=== PATIENT | female | born 1990 | race Caucasian/White ===

== ENCOUNTER 2018-10-22 14:14 | Emergency (ER) | payer BC ==
[2018-10-22 14:25] VITALS: BP 139/80; PULSE 57; RESP 18; TEMP 98.3
--- NOTE | 2018-10-22 14:52 | XR ---
EXAMINATION TYPE: XR wrist complete RT DATE OF EXAM: 10/22/2018 COMPARISON: NONE HISTORY: Pain TECHNIQUE: Four views submitted. FINDINGS: The osseous structures are intact. The joint spaces are preserved and there is no acute fracture or dislocation. IMPRESSION: 1. No definite acute fracture or dislocation if symptoms persist, follow-up study in 7 to 10 days wo uld be suggested
--- NOTE | 2018-10-22 14:53 | XR ---
EXAMINATION TYPE: XR hand complete RT DATE OF EXAM: 10/22/2018 COMPARISON: NONE HISTORY: Pain TECHNIQUE: Three views are submitted. FINDINGS: The osseous structures are intact. The joint spaces are preserved and there is no acute fracture or dislocation. IMPRESSION: 1. No definite acute fracture or dislocation if symptoms persist, follow-up study in 7 to 10 days wo uld be suggested
--- NOTE | 2018-10-22 15:04 | ED ---
General Adult HPI - General Chief complaint: Extremity Injury, Upper Stated complaint: right arm/hand pain Time Seen by Provider: 10/22/18 14:25 Source: patient, RN notes reviewed, old records reviewed Mode of arrival: ambulatory Limitations: no limitations - History of Present Illness Initial comments: 28-year-old female patient with no pertinent past medical history presents ED chief complaint approximately 2 months of atraumatic right hand and right wrist pain. Patient reports that this pain is exacerbated with hand movements, lifting and pulling. Patient denies any recent falls or trauma. Patient denies any personal history of inflammatory arthritis. Denies any other complaints. Denies any chance of being . Systemic: Pt denies fatigue, fever/chills, rash. Pt denies weakness, night sweats, weight loss. Neuro: Pt denies headache, visual disturbances, syncope or pre-syncope. HEENT: Pt denies ocular discharge or irritation, otalgia, rhinorrhea, pharyngitis or notable lymphadenopathy. Cardiopulmonary: Pt denies chest pain, SOB, heart palpitations, dyspnea on exertion. Abdominal/GI: Pt denies abdominal pain, n/v/d. : Pt denies dysuria, burning w/ urination, frequency/urgency. Denies new onset urinary or bowel incontinence. MSK: Pt denies loss of strength or function in extremities. Neuro: Pt denies new onset weakness, paresthesias. - Related Data Allergies Allergy/AdvReac Type Severity Reaction Status Date / Time No Known Allergies Allergy Verified 10/22/18 14:24 Review of Systems ROS Statement: Those systems with pertinent positive or pertinent negative responses have been documented in the HPI. ROS Other: All systems not noted in ROS Statement are negative. Past Medical History Past Medical History: No Reported History History of Any Multi-Drug Resistant Organisms: None Reported Past Surgical History: Cholecystectomy, Orthopedic Surgery Past Psychological History: No Psychological Hx Reported Smoking Status: Never smoker Past Alcohol Use History: None Reported Past Drug Use History: None Reported General Exam - General Exam Comments Initial Comments: Constitutional: NAD, AOX3, Pt has pleasant affect. HEENT: NC/AT, trachea midline, neck supple, no lymphadenopathy. Posterior pharynx non erythematous, without exudates. External ears appear normal, without discharge. Mucous membranes moist. Eyes PERRLA, EOM intact. There is no scleral icterus. No pallor noted. Cardiopulmonary: RRR, no murmurs, rubs or gallops, no JVD noted. Lungs CTAB in anterior and posterior cuevas. No peripheral edema. Abdominal exam: Abdomen soft and non-distended. Abdomen non-tender to palpation in all 4 quadrants. Bowel sounds active in LLQ. No hepatosplenomegaly. No ecchymosis Neuro: CN II-XII grossly intact. No nuchal rigidity. No raccon eyes, no benjamin sign, no hemotympanum. No cervical spinal tenderness. MSK: Right hand and wrist nontender to palpation, no ecchymoses, had refill less than 2 seconds, radial pulse +2. Full range of motion. No erythema. No posterior calf tenderness bilaterally, homans sign negative bilaterally. Posterior tibialis and radial pulse +2 bilaterally. Sensation intact in upper and lower extremities. Full active ROM in upper and lower extremities, 5/5 stregnth. Limitations: no limitations Course Vital Signs 10/22/18 14:22 Temperature 98.3 F Pulse Rate 57 L Respiratory 18 Rate Blood Pressure 139/80 O2 Sat by Pulse 100 Oximetry Medical Decision Making - Medical Decision Making 28-year-old female patient presents to ED chief complaint approximately 2 months of right hand and wrist pain without any trauma or injury. Patient also in stable, afebrile. Physical exam demonstrates pathology. Plain films of hand restaurants that he pathology. Patient was discharged with orthopedic follow- up. Patient will use Tylenol and Motrin as needed for pain. Recommended neutral splints to wear at night. Case discussed with Dr. Parsons. Disposition Clinical Impression: Arthralgia Disposition: HOME SELF-CARE Condition: Stable Instructions (If sedation given, give patient instructions): Arthralgia (ED) Additional Instructions: Patient to adhere to previously discussed treatment plan and will take medication(s) as directed. Patient to follow up with PCP in 1-2 days. Patient to return to ED if symptoms do not improve. Follow-up with primary care provider and orthopedic consult 1-2 days. Use Tylenol and Motrin as needed for pain. Consider purchasing neutral splints to wear at night. Return to ER if condition worsens. Is patient prescribed a controlled substance at d/c from ED?: No Referrals: None,Stated [Primary Care Provider] - 1-2 days Kota Powell DO [Medical Doctor] - 1-2 days [facility] - 1-2 days
== END 2018-10-22 15:22 | disposition home or self-care (01) ==
LOC: EC 14:14
DX: M25.541 Pain in joints of right hand (principal); M25.531 Pain in right wrist
CPT/HCPCS: 99284